=== PATIENT | female | born 1950 | race Caucasian/White ===

== ENCOUNTER 2018-02-03 06:45 | Day surgery (SDC) | payer MEDICARE, OTHER ==
[~2018-02-03] VITALS: Ht 157.5 cm; Wt 102.5 kg
[~2018-02-03 06:45] MED LIST: BACL10TA PO; BUDE10.2 IH; BUDE1AMP IH; CETI-290 PO; DOXY100C PO; ESTR-95 PO; FLUT110HFA IH; GABA-531 PO; IPRA3AMP24 NEB; LISI-661 PO; MONT10TA21 PO; OXYB5XL PO; PROZ10 PO; RANI150T7 PO; SIMV-260 PO; SODIUM CHLORIDE 0.9% 1,000 ML IV ONE; VITAD1000 PO
[2018-02-03] MEDS ORDERED: BENZOCAINE 20% 50 MCG/SPRAY 57 GM TP ONE (06:46)
[2018-02-03] MEDS ORDERED: ALBUTEROL SULFATE 2.5 MG/0.5 ML NEB SOLUTION NEB ONE (06:46)
[2018-02-03] MEDS ORDERED: LIDOCAINE 4% 50 ML SOLUTION TP ONE (06:46)
[2018-02-03] MEDS ORDERED: LIDOCAINE 2% 30 ML JELLY TP ONE (06:46)
[2018-02-03] MEDS ORDERED: SODIUM CHLORIDE 0.9% 1,000 ML IV ONE (07:00)
[2018-02-03] MEDS ORDERED: FentaNYL CITRATE-PF 100 MCG/2 ML VIAL ONE (07:55)
[2018-02-03] MEDS ORDERED: MIDAZOLAM HCL 2 MG/2 ML VIAL ONE (07:55)
[2018-02-03] MEDS ORDERED: MethylPREDNISolone SOD SUCC 125 MG/2 ML VIAL ONE (08:40)
[2018-02-03] MEDS ORDERED: MethylPREDNISolone SOD SUCC 125 MG/2 ML VIAL IVP ONE (08:45)
[2018-02-03] MEDS ORDERED: OXYGEN THERAPY IH SCH (20:00)
== END 2018-02-03 10:40 | disposition home or self-care (01) ==
LOC: SURGERY 06:45
PROVIDERS: ATTEND Internal Medicine Critical Care Medicine
DX: J38.4 Edema of larynx (principal); B37.0 Candidal stomatitis; J84.111 Idiopathic interstitial pneumonia, not otherwise specified; J98.09 Other diseases of bronchus, not elsewhere classified; J98.8 Other specified respiratory disorders; I10 Essential (primary) hypertension; E78.00 Pure hypercholesterolemia, unspecified; M19.90 Unspecified osteoarthritis, unspecified site; F32.9 Major depressive disorder, single episode, unspecified; J44.9 Chronic obstructive pulmonary disease, unspecified; F10.21 Alcohol dependence, in remission; Z79.2 Long term (current) use of antibiotics; Z86.11 Personal history of tuberculosis; Z79.891 Long term (current) use of opiate analgesic; Z87.891 Personal history of nicotine dependence; Z90.721 Acquired absence of ovaries, unilateral; Z90.49 Acquired absence of other specified parts of digestive tract; Z98.890 Other specified postprocedural states; Z79.899 Other long term (current) drug therapy
CPT/HCPCS: 31623; 31624; 71045; 87015; 87070; 87205; 87206; 87220; J2250; J2930; J3010; J7030; 88108; 88312

== ENCOUNTER 2019-02-12 06:57 | Day surgery (SDC) | payer MEDICARE, OTHER ==
[~2019-02-12] VITALS: Ht 160 cm; Wt 99.1 kg
[~2019-02-12 06:57] MED LIST changes: -CETI-290 PO; +CETI10TA59 PO; +CHOL100018 PO; -VITAD1000 PO
[2019-02-12] MEDS ORDERED: LIDOCAINE 4% 50 ML SOLUTION TP ONE (06:58)
[2019-02-12] MEDS ORDERED: LIDOCAINE 2% 30 ML JELLY TP ONE (06:58)
[2019-02-12] MEDS ORDERED: ALBUTEROL SULFATE 2.5 MG/0.5 ML NEB SOLUTION NEB ONE (06:58)
[2019-02-12] MEDS ORDERED: BENZOCAINE 20% 50 MCG/SPRAY 57 GM TP ONE (06:58)
[2019-02-12] MEDS ORDERED: METF-960 PO (07:42)
[2019-02-12] MEDS ORDERED: MIDAZOLAM HCL 2 MG/2 ML VIAL ONE (07:56)
[2019-02-12] MEDS ORDERED: FentaNYL CITRATE-PF 100 MCG/2 ML VIAL ONE (07:56)
[2019-02-12 08:15] LABS: GLUCOMETER DEV NAME(LOC) SDS.; GLUCOSE,POINT OF CARE 125 MG/DL (70-110)
[2019-02-12] MEDS ORDERED: MethylPREDNISolone SOD SUCC 125 MG/2 ML VIAL IVP ONE (08:30)
[2019-02-12] MEDS ORDERED: OXYGEN THERAPY IH SCH (20:00)
== END 2019-02-12 10:00 | disposition home or self-care (01) ==
LOC: SURGERY 06:57
PROVIDERS: ATTEND Internal Medicine Critical Care Medicine
DX: R05 Cough (principal); R91.1 Solitary pulmonary nodule; J34.89 Other specified disorders of nose and nasal sinuses; J98.8 Other specified respiratory disorders; J38.4 Edema of larynx; B37.0 Candidal stomatitis; I10 Essential (primary) hypertension; E11.9 Type 2 diabetes mellitus without complications; G47.33 Obstructive sleep apnea (adult) (pediatric); Z79.899 Other long term (current) drug therapy
CPT/HCPCS: 31623; 31624; 71045; 82962; 87015; 87070; 87101; 87205; 87206; 87220; 88108; 88173; J2250; J2930; J3010; J7030

== ENCOUNTER 2020-01-04 06:09 | Day surgery (SDC) | payer OTHER ==
[2020-01-03 15:59] LABS: COVID AG,FIA SOURCE NASOPHARYNGEAL
[~2020-01-04] VITALS: Ht 160 cm; Wt 103.0 kg
[~2020-01-04 06:09] MED LIST changes: +CETI-450 PO; -CETI10TA59 PO; -DOXY100C PO; +GABA-1181 PO; -GABA-531 PO; +METF-960 PO; +MONT-35 PO; -MONT10TA21 PO; -SODIUM CHLORIDE 0.9% 1,000 ML IV ONE; +SODIUM CHLORIDE 0.9% 1,000 ML ONE
[2020-01-04] MEDS ORDERED: BENZOCAINE 20% 50 MCG/SPRAY 57 GM TP ONE (06:10)
[2020-01-04] MEDS ORDERED: LIDOCAINE 2% 30 ML JELLY TP ONE (06:10)
[2020-01-04] MEDS ORDERED: ALBUTEROL SULFATE 2.5 MG/0.5 ML NEB SOLUTION NEB ONE (06:10)
[2020-01-04] MEDS ORDERED: LIDOCAINE 4% 50 ML SOLUTION TP ONE (06:10)
[2020-01-04] MEDS ORDERED: PRED10 PO (08:02)
[2020-01-04] MEDS ORDERED: OMEP20 PO (08:02)
[2020-01-04] MEDS ORDERED: FLUC100T PO (08:02)
[2020-01-04] MEDS ORDERED: DOXY50CA7 PO (08:02)
[2020-01-04] MEDS ORDERED: D-ME473S53 PO (08:02)
[2020-01-04] MEDS ORDERED: DULO30CA96 PO (08:02)
[2020-01-04] MEDS ORDERED: NYST100033 PO (08:02)
[2020-01-04] MEDS ORDERED: MIDAZOLAM HCL 2 MG/2 ML VIAL ONE (08:13)
[2020-01-04] MEDS ORDERED: FentaNYL CITRATE-PF 100 MCG/2 ML VIAL ONE (08:14)
[2020-01-04] MEDS ORDERED: MethylPREDNISolone SOD SUCC 125 MG/2 ML VIAL IVP ONE (09:00)
[2020-01-04] MEDS ORDERED: SODIUM CHLORIDE 0.9% 1,000 ML IV ONE (09:00)
[2020-01-04] MEDS ORDERED: MethylPREDNISolone SOD SUCC 125 MG/2 ML VIAL ONE (09:10)
[2020-01-04] MEDS ORDERED: OXYGEN THERAPY IH SCH (20:00)
== END 2020-01-04 10:15 | disposition home or self-care (01) ==
LOC: SURGERY 06:09
PROVIDERS: ATTEND Internal Medicine Critical Care Medicine
DX: J38.4 Edema of larynx (principal); B37.0 Candidal stomatitis; E11.9 Type 2 diabetes mellitus without complications; Z90.710 Acquired absence of both cervix and uterus; Z98.890 Other specified postprocedural states; Z86.11 Personal history of tuberculosis
CPT/HCPCS: 31623; 31624; 71045; 87015; 87070; 87077; 87101; 87186; 87205; 87206; 87220; 87426; 88108; 88312; J2250; J2930; J3010; J7030; J7613; Z7610

== ENCOUNTER 2020-11-12 06:25 | Day surgery (SDC) | payer OTHER ==
[~2020-11-12] VITALS: Ht 160 cm; Wt 104.5 kg
[~2020-11-12 06:25] MED LIST changes: -CHOL100018 PO; +D-ME473S53 PO; +DOXY50CA PO; +DULO30CA89 PO; -ESTR-95 PO; +FLUC100T PO; -LISI-661 PO; -METF-960 PO; +NYST100033 PO; +OMEP20 PO; -OXYB5XL PO; +PRED10 PO; -PROZ10 PO; -RANI150T7 PO; -SIMV-260 PO; -SODIUM CHLORIDE 0.9% 1,000 ML ONE
[2020-11-12] MEDS ORDERED: LIDOCAINE 2% 30 ML JELLY TP ONE (06:26)
[2020-11-12] MEDS ORDERED: BENZOCAINE 20% 50 MCG/SPRAY 57 GM TP ONE (06:26)
[2020-11-12] MEDS ORDERED: ALBUTEROL SULFATE 2.5 MG/0.5 ML NEB SOLUTION NEB ONE (06:26)
[2020-11-12] MEDS ORDERED: SODIUM CHLORIDE 0.9% 1,000 ML IV ONE (06:30)
[2020-11-12] MEDS ORDERED: SODIUM CHLORIDE 0.9% 1,000 ML ONE (07:12)
[2020-11-12 07:35] LABS: COVID AG,FIA SOURCE NASOPHARYNGEAL
[2020-11-12] MEDS ORDERED: MIDAZOLAM HCL 5 MG/ML VIAL ONE (07:42)
[2020-11-12] MEDS ORDERED: FentaNYL CITRATE PF 100 MCG/2 ML VIAL ONE (07:42)
[2020-11-12 08:41] LABS: GLUCOMETER DEV NAME(LOC) SDS.; GLUCOSE,POINT OF CARE 119 MG/DL (70-110)
[2020-11-12] MEDS ORDERED: MethylPREDNISolone SOD SUCC 125 MG/2 ML VIAL IVP ONE (09:30)
[2020-11-12] MEDS ORDERED: MethylPREDNISolone SOD SUCC 125 MG/2 ML VIAL ONE (09:54)
[2020-11-12] MEDS ORDERED: OXYGEN THERAPY IH SCH (20:00)
== END 2020-11-12 11:30 | disposition home or self-care (01) ==
LOC: SURGERY 06:25
PROVIDERS: ATTEND Internal Medicine Critical Care Medicine
DX: R05 Cough (principal); R04.2 Hemoptysis; R91.1 Solitary pulmonary nodule; J34.89 Other specified disorders of nose and nasal sinuses; J98.8 Other specified respiratory disorders; J38.4 Edema of larynx; B37.0 Candidal stomatitis; G47.33 Obstructive sleep apnea (adult) (pediatric); I10 Essential (primary) hypertension; E11.9 Type 2 diabetes mellitus without complications; E78.00 Pure hypercholesterolemia, unspecified; M19.90 Unspecified osteoarthritis, unspecified site; Z20.822 Contact with and (suspected) exposure to COVID-19; Z98.890 Other specified postprocedural states; Z79.899 Other long term (current) drug therapy
CPT/HCPCS: 31623; 31624; 71045; 82962; 87015; 87070; 87101; 87205; 87206; 87220; 87426; 88108; 88184; 88185; 88312; C9803; J2250; J2930; J3010; J7030; J7613

== ENCOUNTER 2022-09-22 06:29 | Day surgery (SDC) | payer OTHER ==
[~2022-09-22] VITALS: Ht 157.5 cm; Wt 99.8 kg
[~2022-09-22 06:29] MED LIST changes: +ALBU0.8311 NEB; +ALBU18HF12 IH; +ATOR40TA71 PO; +BUDE0.5A NEB; -BUDE1AMP IH; -CETI-450 PO; -D-ME473S53 PO; +DOXY-469 PO; -DOXY50CA PO; +DULO-114 PO; -DULO30CA89 PO; +FAMO40TA7 PO; +FEXO-353 PO; -FLUC100T PO; -FLUT110HFA IH; +FLUT16SP NASAL; -GABA-1181 PO; +GABA600T10 PO; +IPRA0.2S7 NEB; -IPRA3AMP24 NEB; +LISI40TA9 PO; +METF-1211 PO; +METO25 PO; -OMEP20 PO; +PRED-729 PO; -PRED10 PO; +PROM473S6 PO; +TRAZ-257 PO
[2022-09-22] MEDS ORDERED: ALBUTEROL SULFATE 2.5 MG/0.5 ML NEB SOLUTION NEB ONE (06:30)
[2022-09-22] MEDS ORDERED: LIDOCAINE 4% 50 ML SOLUTION TP ONE (06:30)
[2022-09-22] MEDS ORDERED: BENZOCAINE 20% 50 MCG/SPRAY 57 GM TP ONE (06:30)
[2022-09-22] MEDS ORDERED: LIDOCAINE 2% 11 ML JELLY TP ONE (06:30)
[2022-09-22] MEDS ORDERED: SODIUM CHLORIDE 0.9% 1,000 ML IV ONE (07:00)
[2022-09-22] MEDS ORDERED: SODIUM CHLORIDE 0.9% 1,000 ML ONE (07:23)
[2022-09-22] MEDS ORDERED: MIDAZOLAM HCL 2 MG/2 ML VIAL ONE (07:45)
[2022-09-22] MEDS ORDERED: FentaNYL CITRATE PF 100 MCG/2 ML VIAL ONE (07:45)
[2022-09-22 08:31] LABS: GLUCOMETER DEV NAME(LOC) SDS.
[2022-09-22 09:40] VITALS: PULSE 60; RESP 16; O2SAT 99
[2022-09-22] MEDS ORDERED: MethylPREDNISolone SOD SUCC 125 MG/2 ML VIAL IVP ONE (09:45)
[2022-09-22] MEDS ORDERED: MethylPREDNISolone SOD SUCC 125 MG/2 ML VIAL ONE (10:13)
== END 2022-09-22 11:35 | disposition home or self-care (01) ==
LOC: SURGERY 06:29
PROVIDERS: ATTEND Internal Medicine Critical Care Medicine
DX: J38.4 Edema of larynx (principal); B37.0 Candidal stomatitis; E11.9 Type 2 diabetes mellitus without complications; Z79.899 Other long term (current) drug therapy; Z98.890 Other specified postprocedural states; Z90.710 Acquired absence of both cervix and uterus
CPT/HCPCS: 31623; 88112; 82962; 87206; 87101; 87220; 87070; 31624; 94640; 71045; 87015; J3010; J2250; J2930; Q9967; J7030; J7613; Z7610

== ENCOUNTER 2024-06-15 06:17 | Day surgery (SDC) | payer OTHER ==
[~2024-06-15] VITALS: Ht 154.9 cm; Wt 95.5 kg
[~2024-06-15 06:17] MED LIST changes: +DOXY-466 PO; -DOXY-469 PO; +GABA-1404 PO; -GABA600T10 PO
[2024-06-15] MEDS ORDERED: LIDOCAINE 2% 11 ML JELLY TP ONE (06:18)
[2024-06-15] MEDS ORDERED: LIDOCAINE 4% 50 ML SOLUTION TP ONE (06:18)
[2024-06-15] MEDS ORDERED: ALBUTEROL SULFATE 2.5 MG/0.5 ML NEB SOLUTION NEB ONE (06:18)
[2024-06-15] MEDS ORDERED: BENZOCAINE 20% 50 MCG/SPRAY 57 GM TP ONE (06:18)
[2024-06-15] MEDS ORDERED: SODIUM CHLORIDE 0.9% 1,000 ML ONE (07:20)
[2024-06-15] MEDS ORDERED: MIDAZOLAM HCL 2 MG/2 ML VIAL ONE (07:34)
[2024-06-15] MEDS ORDERED: FentaNYL CITRATE PF 100 MCG/2 ML VIAL ONE (07:35)
[2024-06-15] MEDS: SODIUM CHLORIDE 0.9% 1,000 ML IV ONE (07:46)
[2024-06-15 08:16] LABS: GLUCOMETER DEV NAME(LOC) SDS.; GLUCOSE,POINT OF CARE 100 MG/DL (70-110)
[2024-06-15 09:20] VITALS: PULSE 64; RESP 18; O2SAT 100
[2024-06-15] MEDS ORDERED: MethylPREDNISolone SOD SUCC 125 MG/2 ML VIAL ONE (09:23)
[2024-06-15] MEDS: MethylPREDNISolone SOD SUCC 125 MG/2 ML VIAL IVP ONE (10:06)
== END 2024-06-15 13:10 | disposition home or self-care (01) ==
LOC: SURGERY 06:17
PROVIDERS: ATTEND Internal Medicine Critical Care Medicine
DX: R05.3 Chronic cough (principal); J38.4 Edema of larynx; B37.0 Candidal stomatitis; G47.30 Sleep apnea, unspecified; I10 Essential (primary) hypertension; J44.9 Chronic obstructive pulmonary disease, unspecified; E78.00 Pure hypercholesterolemia, unspecified; M19.90 Unspecified osteoarthritis, unspecified site; Z87.891 Personal history of nicotine dependence; Z90.710 Acquired absence of both cervix and uterus
CPT/HCPCS: 31623; 82962; 87206; 87101; 87220; 87070; 88108; 31624; 94640; 71045; 87015; J3010; J2250; J2919; J7030; J7613; Z7610